=== PATIENT | male | born 1995 | race Caucasian/White ===

== ENCOUNTER 2022-09-28 17:25 | Emergency (ER) | payer BC ==
[~2022-09-28] VITALS: Ht 180.3 cm; Wt 90.7 kg
--- NOTE | 2022-09-28 17:35 | NUR ---
RECEIVED PT 26 YRS MALE CAME FROM HOME BY [facility]UND C/O SYNCOPY AND FAINTING AWAKE AND ALERT S/P LT SHOULDER SURGERY YESTERDAY NO WEEKNESS NO DIFFECITY
--- NOTE | 2022-09-28 17:53 | NUR ---
ESTABLISHED IV ACCESS 20G R AC. BLOOD DRAWN AND SENT TO LAB. IV FLUIDS STARTED ORDERED.
[2022-09-28 17:59] LABS: BASOPHILS % (AUTO) 0.4 % (0.0-2.0); EOSINOPHILS % (AUTO) 1.1 % (0.0-6.0); HEMATOCRIT 46 % (39-51); HEMOGLOBIN 15.6 g/dL (13.5-17.5); LYMPHOCYTES # (AUTO) 2.4 K/uL (0.8-4.8); LYMPHOCYTES % (AUTO) 24.4 % (20.0-44.0); MEAN CORPUSCULAR HGB CONC 34 g/dl (31.0-36.0); MEAN CORPUSCULAR VOLUME 86 fL (80-96); MONOCYTES # (AUTO) 0.6 K/uL (0.1-1.30); MONOCYTES % (AUTO) 6.1 % (2.0-12.0); NEUTROPHILS # (AUTO) 6.7 K/uL (1.8-8.9); PLATELET COUNT (AUTO) 289 K/uL (150-450); WHITE BLOOD COUNT (AUTO) 9.8 K/uL (4.3-11.0)
[2022-09-28] MEDS ORDERED: IV NS 0.9% 1,000 ML BAG IV ONE (18:00)
[2022-09-28 18:19] LABS: CALCIUM, SERUM 8.5 mg/dL (8.5-10.1); CARBON DIOXIDE 31 mmol/L (21-32); CHLORIDE 106 mmol/L (98-107); CREATININE 1.2 mg/dL (0.6-1.3); GLUCOSE 137 mg/dL (74-106); POTASSIUM 3.2 mmol/L (3.5-5.1); SODIUM SERUM 140 mmol/L (136-145); UREA NITROGEN, BLOOD 16 mg/dL (7-18)
[2022-09-28] MEDS ORDERED: ONDANSETRON HCL/PF 4 MG/2 ML VIAL ONE (18:29)
[2022-09-28] MEDS ORDERED: ONDANSETRON HCL/PF 4 MG/2 ML VIAL IVP ONE (18:30)
--- NOTE | 2022-09-28 18:49 | NUR ---
NO PAIN AT THIS TIME
[2022-09-28] MEDS ORDERED: POTASSIUM CHLORIDE 20 MEQ TAB.PRT.SR PO ONE ×2 (18:52→19:00)
--- NOTE | 2022-09-28 19:10 | NUR ---
IV removed. Catheter intact and site benign. Pressure and 4x4 applied to site. No bleeding noted.
--- NOTE | 2022-09-28 19:15 | NUR ---
Patient discharged to home in stable condition. Written and verbal after care instructions given. Patient verbalizes understanding of instruction.
[2022-09-28 19:24] VITALS: BP 125/60
== END 2022-09-28 19:25 | disposition home or self-care (01) ==
LOC: ER 17:27
DX: R55 Syncope and collapse (principal)
CPT/HCPCS: 99285; 96374; 71045; 96361; 93005; 85025; 80048; 85378; 36415; 84484; J2405; J7030